=== PATIENT | male | born 1980 | race African-American/Black ===

== ENCOUNTER 2021-06-20 17:18 | Emergency (ER) | payer OTHER ==
[2021-06-20 17:25] VITALS: BP 124/77; PULSE 76; TEMP 98.9; BMI 24.4
[2021-06-20 20:14] LABS: HIV INTERPRETATION NEGATIVE (NEGATIVE)
== END 2021-06-20 19:00 | disposition home or self-care (01) ==
LOC: JERFT 17:18
DX: S60.811A Abrasion of right wrist, initial encounter (principal); W50.4XXA Accidental scratch by another person, initial encounter; Y92.9 Unspecified place or not applicable
CPT/HCPCS: 36415; 86704; 86706; 86803; 87340; 87389; 87517; 99283-25